=== PATIENT | female | born 1995 | race African-American/Black ===

== ENCOUNTER 2020-09-30 15:29 | Emergency (ER) | payer OTHER ==
[~2020-09-30] VITALS: Ht 167.6 cm; Wt 68.0 kg
[2020-09-30 16:16] VITALS: BP 154/83
== END 2020-09-30 17:10 | disposition left against medical advice (07) ==
LOC: ER 15:29
DX: R05 Cough (principal); R11.2 Nausea with vomiting, unspecified; M79.18 Myalgia, other site
CPT/HCPCS: 99281